=== PATIENT | male | born 1940 | race Caucasian/White ===

== ENCOUNTER → 2016-08-27 | Outpatient (CLI) | payer MEDICARE, BC ==
--- NOTE | ~2016-08-27 | US136 ---
[facility] A Service of [facility] & [facility] RADIOLOGY TEXT RESULTS PATIENT: LILLIAN FREIRE LOCATION: CNIV : 42 UNIT #: [id number] AGE: [address]: Pillo Leach DPM SEX: M ORDER DR: [id number] [facility] [address] [place], [place] [address] [id number] O MR#: [id number] Acc #: [id number] NAME: LILLIAN FREIRE : 1940 SEX: M STUDY DATE/TIME: 08/27/2016 14:32 UNIT: CNIV ROOM: STUDY DESCRIPTION: U/L [facility] Art Study [facility] Bil Attending Physician: Pillo Leach D.P.M. Referring Physician: Pillo Leach D.P.M. Ordering Physician: Pillo Leach D.P.M. MEDICAL IMAGING REPORT This report is preliminary unless electronic signature is present EXAM Bilateral ankle-brachial indices HISTORY Left foot pain and redness for 5 weeks. Peripheral vascular disease. FINDINGS Peak brachial pressures are 128 on the right 139 on the left. At the right ankle, no pressures could be obtained at the dorsalis pedis or posterior tibial arteries due to non-compressible vessels. Right great toe pressure is 42 for a toe-brachial index of 0.30. At the left ankle, peak pressures are 66 posterior tibial and 39 dorsalis pedis, for an ankle-brachial index of 0.47 posterior tibial and 0.28 at the dorsalis pedis . The left great toe pressure could not be obtained. IMPRESSION - Left ankle-brachial index measures 0.47 indicating moderately severe to severe arterial stenosis in the left lower extremity. - Right ankle-brachial index could not be calculated due to non-compressible vessels at the right ankle. - Right great toe-brachial index is diminished at 0.30 indicating arterial stenosis, probably moderately severe, although the level of stenosis cannot be determined on this exam. - Left great toe pressure was not obtained. Dictated by... Butch Iglesias M.D. THIS IS AN ELECTRONICALLY VERIFIED REPORT [facility] A Service of [facility] & [facility] RADIOLOGY TEXT RESULTS PATIENT: LILLIAN FREIRE LOCATION: IV : 42 UNIT #: [id number] AGE: [address]: Pillo Leach DPM SEX: M ORDER DR: Butch Iglesias M.D. at 08/27/2016 11:12 PM DFL/pcl TD: 08/27/2016 22:07 JOB #: [id number] MEDICAL IMAGING REPORT Page 1 of 1 COPY
== END | disposition home or self-care (01) ==
LOC: CNIV 14:21
DX: I73.9 Peripheral vascular disease, unspecified (principal); I70.208 Unspecified atherosclerosis of native arteries of extremities, other extremity
CPT/HCPCS: 93922